=== PATIENT | male | born 1975 | race Native Hawaiian/Other Pacific Islander ===

== ENCOUNTER 2017-12-04 17:10 | Emergency (ER) | payer OTHER ==
[~2017-12-04] VITALS: Ht 185.4 cm; Wt 77.1 kg
[2017-12-04 17:20] VITALS: BP 122/73; TEMP 97.7
== END 2017-12-04 17:40 | disposition home or self-care (01) ==
LOC: ED 17:10
DX: M25.511 Pain in right shoulder (principal)
CPT/HCPCS: 99281